=== PATIENT | male | born 1970 | race Caucasian/White ===

== ENCOUNTER 2016-05-25 08:00 | Emergency (ER) | payer BC ==
[2016-05-25 08:11] VITALS: BP 140/97
--- NOTE | 2016-05-25 08:34 | UC ---
Respiratory Complaint HPI - HPI Summary HPI Summary: 6 weeks of continued cough, albuteral and tessalon with out much relief cough in fact seems to be getting worse. no fevers or chills. some bronchial pain with cough - History of Current Complaint Chief Complaint: UCRespiratory Stated Complaint: COUGH Time Seen by Provider: 05/25/16 08:29 Hx Obtained From: Patient Onset/Duration: Gradual Onset, Lasting Weeks - 6, Still Present Timing: Constant Severity Initially: Mild Severity Currently: Mild Pain Intensity: 2 Pain Scale Used: 0-10 Numeric Character: Cough: Nonproductive Aggravating Factors: Nothing Alleviating Factors: Bronchodilator - slight Associated Signs And Symptoms: Positive: Pleuritic Chest Pain, URI - Allergies/Home Medications Allergies/Adverse Reactions: Allergies Allergy/AdvReac Type Severity Reaction Status Date / Time No Known Allergies Allergy Verified 09/29/15 18:10 Home Medications: Home Medications Ibuprofen TAB* [Advil TAB*] 1 tab PO 05/25/16 [History] Mucinex Cold-Max 05/25/16 [History] PMH/Surg Hx/FS Hx/Imm Hx Previously Healthy: No Cardiovascular History Of: Reports: Hypertension - EPISODIC - Surgical History Surgical History: None - Family History Known Family History: Positive: None Family History: no cardio vascular issues in family lineage - Social History Occupation: Employed Full-time Lives: With Family Alcohol Use: Weekly Alcohol Amount: 3-4 days Substance Use Type: None Smoking Status (MU): Former Smoker Have You Smoked in the Last Year: No Review of Systems Constitutional: Negative Skin: Negative Eyes: Negative ENT: Negative Respiratory: Cough Cardiovascular: Negative Gastrointestinal: Negative Genitourinary: Negative Motor: Negative Neurovascular: Negative Musculoskeletal: Negative Neurological: Negative Psychological: Negative All Other Systems Reviewed And Are Negative: Yes Physical Exam Triage Information Reviewed: Yes Appearance: Well-Appearing, No Pain Distress, Well-Nourished Vital Signs: Initial Vital Signs Temp 97.6 F 05/25/16 08:06 Pulse 83 05/25/16 08:06 Resp 18 05/25/16 08:06 BP 140/97 05/25/16 08:06 Pulse Ox 97 05/25/16 08:06 Vital Signs Reviewed: Yes Eye Exam: Normal Eyes: Positive: Conjunctiva Clear ENT Exam: Normal ENT: Positive: Normal ENT inspection, Hearing grossly normal, Pharynx normal, TMs normal. Negative: Nasal congestion, Nasal drainage, Tonsillar swelling, Tonsillar exudate, Trismus, Muffled/hoarse voice Dental Exam: Normal Neck exam: Normal Neck: Positive: Supple, Nontender, No Lymphadenopathy Respiratory Exam: Normal Respiratory: Positive: Chest non-tender, Lungs clear, Normal breath sounds, No respiratory distress Cardiovascular Exam: Normal Cardiovascular: Positive: RRR, No Murmur, Pulses Normal, Brisk Capillary Refill Musculoskeletal Exam: Normal Musculoskeletal: Positive: Strength Intact, ROM Intact, No Edema Neurological Exam: Normal Neurological: Positive: Alert, Muscle Tone Normal Psychological Exam: Normal Skin Exam: Normal UC Diagnostic Evaluation - Laboratory O2 Sat by Pulse Oximetry: 97 Respiratory Course/Dx - Course Course Of Treatment: continue albuterol, humidified air, add zithromax, follow with pcp - Differential Dx/Diagnosis Differential Diagnosis/HQI/PQRI: Asthma, Bronchitis, Sinusitis Provider Diagnoses: Bronchitis with bronchospastic cough Discharge - Discharge Plan Condition: Stable Disposition: HOME Prescriptions: Albuterol HFA INHALER* [Ventolin HFA Inhaler*] 2 puff INH Q4H PRN #1 mdi PRN Reason: cough Azithromycin TAB* [Zithromax TAB (Z-FRANNIE)*] 250 mg PO .Z-FRANNIE INSTRUCTIONS #6 tab Patient Education Materials: How to Use a Metered-Dose Inhaler (ED), Upper Respiratory Infection (ED), Acute Cough (ED) Referrals: Charlie Worthy, [employer] [Primary Care Provider] - If Needed
== END 2016-05-25 08:45 | disposition home or self-care (01) ==
LOC: UCEAST 08:00
DX: J20.9 Acute bronchitis, unspecified (principal); Z87.891 Personal history of nicotine dependence
CPT/HCPCS: 99212; G0463

== ENCOUNTER 2016-07-09 13:46 | Emergency (ER) | payer BC ==
[2016-07-09 15:32] VITALS: BP 144/91
--- NOTE | 2016-07-09 16:26 | UC ---
FLU HPI - History of Current Complaint Chief Complaint: UCRespiratory Stated Complaint: FLU-LIKE SYMPTOMS Time Seen by Provider: 07/09/16 15:52 Hx Obtained From: Patient - awoke this am with sudden onset body aches, cough, fever and malaise. his and 2 sons tested pos for Flu in last 2-3 days Onset/Duration: Sudden Onset Associated Signs & Symptoms: Positive: Fever, Cough, Sore Throat Related Hx: Possible Flu/Infectious Exposure - Allergy/Home Medications Allergies/Adverse Reactions: Allergies Allergy/AdvReac Type Severity Reaction Status Date / Time No Known Allergies Allergy Verified 09/29/15 18:10 Home Medications: Home Medications Cholecalciferol [Vitamin D3] 1,000 unit PO 07/09/16 [History] PMH/Surg Hx/FS Hx/Imm Hx Previously Healthy: Yes Endocrine History Of: Denies: Diabetes Cardiovascular History Of: Reports: Hypertension - episodic Respiratory History Of: Denies: COPD - Surgical History Surgical History: None - Family History Known Family History: Positive: None Family History: no cardio vascular issues in family lineage - Social History Alcohol Use: Daily Alcohol Amount: 3-4 days Substance Use Type: None Smoking Status (MU): Former Smoker Have You Smoked in the Last Year: No Review of Systems Constitutional: Fever, Fatigue Skin: Negative Eyes: Negative ENT: Sore Throat Respiratory: Cough Cardiovascular: Negative Gastrointestinal: Negative Musculoskeletal: Negative Neurological: Negative Psychological: Negative All Other Systems Reviewed And Are Negative: Yes Physical Exam Triage Information Reviewed: Yes Appearance: Well-Appearing, No Pain Distress, Well-Nourished Vital Signs: Initial Vital Signs Temp 100.8 F 07/09/16 15:28 Pulse 100 07/09/16 15:28 Resp 18 07/09/16 15:28 BP 144/91 07/09/16 15:28 Pulse Ox 95 07/09/16 15:28 Vital Signs Reviewed: Yes Eyes: Positive: Conjunctiva Clear ENT: Positive: Pharynx normal, TMs normal Neck: Positive: No Lymphadenopathy Respiratory: Positive: Lungs clear - dry cough on exam Cardiovascular Exam: Normal Cardiovascular: Positive: RRR Neurological Exam: Normal Psychological Exam: Normal Skin Exam: Normal Skin: Negative: rashes Flu Course/Dx - Differential Dx/Diagnosis Differential Diagnosis/HQI/PQRI: Bronchitis, Influenza, Upper Respiratory Infection Provider Diagnoses: influenza Discharge - Discharge Plan Condition: Good Disposition: HOME Prescriptions: Oseltamivir CAP* [Tamiflu CAP*] 75 mg PO BID #10 cap Referrals: Charlie Worthy [employer] [Primary Care Provider] - 2 Days (if no better) Additional Instructions: Drink plenty of fluids Start Tamiflu tonight ibuprofen or tylenol as directed for fever and pain
== END 2016-07-09 16:41 | disposition home or self-care (01) ==
LOC: UCEAST 13:46
DX: J11.1 Influenza due to unidentified influenza virus with other respiratory manifestations (principal); Z87.891 Personal history of nicotine dependence
CPT/HCPCS: 87502; 99212; G0463

== ENCOUNTER 2016-12-12 15:17 | Emergency (ER) | payer BC ==
[2016-12-12 15:23] VITALS: BP 133/84
--- NOTE | 2016-12-12 16:20 | UC ---
Ear Complaint HPI - HPI Summary HPI Summary: ONE DAY RIGHT EAR PAIN WORSE AFTER USING QTIP THIS MORNING, CONCERN THAT HE MAY HAVE FORCED EAR WAX FURTHER INTO EAR. NO FEVER. NO CONGESTION. NO DISCHARGE. - History of Current Complaint Chief Complaint: UCEar Stated Complaint: EAR COMPLAINT Time Seen by Provider: 12/12/16 15:26 Hx Obtained From: Patient Onset/Duration: Gradual Onset, Lasting Hours, Still Present Severity Initially: Mild Severity Currently: None Associated Signs/Symptoms: Positive: Trauma to Ear - QTIP - Allergies/Home Medications Allergies/Adverse Reactions: Allergies Allergy/AdvReac Type Severity Reaction Status Date / Time No Known Allergies Allergy Verified 12/12/16 15:23 PMH/Surg Hx/FS Hx/Imm Hx Previously Healthy: Yes - Surgical History Surgical History: None - Family History Known Family History: Positive: None Negative: Respiratory Disease Family History: no cardio vascular issues in family lineage - Social History Occupation: Employed Full-time Lives: With Family Alcohol Use: Daily Alcohol Amount: 3-4 days Substance Use Type: None Smoking Status (MU): Former Smoker Have You Smoked in the Last Year: No Review of Systems Constitutional: Negative Skin: Negative Eyes: Negative ENT: Ear Ache Respiratory: Negative Cardiovascular: Negative Gastrointestinal: Negative Genitourinary: Negative Motor: Negative Neurovascular: Negative Musculoskeletal: Negative Neurological: Negative Psychological: Negative All Other Systems Reviewed And Are Negative: Yes Physical Exam Triage Information Reviewed: Yes Appearance: Well-Appearing, No Pain Distress, Well-Nourished Vital Signs: Initial Vital Signs Temp 97.5 F 12/12/16 15:19 Pulse 65 12/12/16 15:19 Resp 16 12/12/16 15:19 BP 133/84 12/12/16 15:19 Pulse Ox 100 12/12/16 15:19 Vital Signs Reviewed: Yes Eye Exam: Normal ENT: Positive: Hearing grossly normal, Pharyngeal erythema, TMs normal - S/P RIGHT CERUMEN REMOVAL, Other: - RIGHT CERUMEN IMPACTION Dental Exam: Normal Neck exam: Normal Neck: Positive: Supple, Nontender, No Lymphadenopathy Respiratory Exam: Normal Respiratory: Positive: Chest non-tender, Lungs clear, Normal breath sounds, No respiratory distress Cardiovascular Exam: Normal Cardiovascular: Positive: RRR, No Murmur, Pulses Normal Abdominal Exam: Normal Musculoskeletal Exam: Normal Musculoskeletal: Positive: Strength Intact Neurological Exam: Normal Psychological Exam: Normal Skin Exam: Normal Ear Complaint Course/Dx - Differential Dx/Diagnosis Differential Diagnosis/HQI/PQRI: Cerumen Impaction, Otitis Externa, Perforated TM, URI Provider Diagnoses: RIGHT CERUMEN IMPACTION WITH REMOVAL Discharge - Discharge Plan Condition: Stable Disposition: HOME Patient Education Materials: Cerumen Impaction (ED) Referrals: Charlie Worthy, [employer] [Primary Care Provider] -
== END 2016-12-12 16:16 | disposition home or self-care (01) ==
LOC: UCEAST 15:17
DX: H61.21 Impacted cerumen, right ear (principal); Z87.891 Personal history of nicotine dependence
CPT/HCPCS: 99213; G0463

== ENCOUNTER 2018-09-02 14:50 | Emergency (ER) | payer BC ==
[2018-09-02 15:10] VITALS: BP 148/95
--- NOTE | 2018-09-02 15:34 | UC ---
Lower Extremity/Ankle HPI - HPI Summary HPI Summary: DEVELOPED RIGHT GREAT TOE PAIN THIS MORNING AT 10 AM. NO PREVIOUS SIMILAR SYMPTOMS IN THE PAST. DENIES ANY TRAUMA TO THE AREA BUT NOTES HE HAS A SMALL BLISTER ON THE MTP FROM WHERE IT RUBS ON HIS SHOE. THE FIRST MTP JOINT IS WARM , RED AND PAINFUL. DRINKS 4-5 GLASSES OF WINE OR BEER DAILY AND EATS A LOT OF RED MEAT. - History of Current Complaint Chief Complaint: UCLowerExtremity Stated Complaint: TOE INJURY Time Seen by Provider: 09/02/18 15:07 Hx Obtained From: Patient Onset/Duration: Sudden Onset, Lasting Hours, Still Present Severity Initially: Moderate Severity Currently: Moderate Pain Intensity: 5 Pain Scale Used: 0-10 Numeric Aggravating Factor(s): Ambulation Alleviating Factor(s): Nothing Able to Bear Weight: Yes - WITH PAIN - Allergies/Home Medications Allergies/Adverse Reactions: Allergies Allergy/AdvReac Type Severity Reaction Status Date / Time No Known Allergies Allergy Verified 09/02/18 15:10 Home Medications: Home Medications Flaxseed 349 gm PO DAILY 09/02/18 [History Confirmed 09/02/18] Milk Thistle 150 mg PO DAILY 09/02/18 [History Confirmed 09/02/18] PMH/Surg Hx/FS Hx/Imm Hx Cardiovascular History: Hypertension - Surgical History Surgical History: None - Family History Known Family History: Positive: None Negative: Respiratory Disease Family History: no cardio vascular issues in family lineage - Social History Alcohol Use: Daily Alcohol Amount: every 2 days Substance Use Type: None Smoking Status (MU): Former Smoker Have You Smoked in the Last Year: No When Did the Patient Quit Smoking/Using Tobacco: 2003 Review of Systems All Other Systems Reviewed And Are Negative: Yes Constitutional: Positive: Negative Skin: Positive: Other - ERYTHEMA Respiratory: Positive: Negative Cardiovascular: Positive: Negative Gastrointestinal: Positive: Negative Musculoskeletal: Positive: Arthralgia, Decreased ROM Physical Exam Triage Information Reviewed: Yes Appearance: Well-Appearing, No Pain Distress, Well-Nourished Vital Signs: Initial Vital Signs Temp 99.1 F 09/02/18 15:05 Pulse 78 09/02/18 15:05 Resp 16 09/02/18 15:05 BP 148/95 09/02/18 15:05 Pulse Ox 99 09/02/18 15:05 Vital Signs Reviewed: Yes Eyes: Positive: Conjunctiva Clear ENT: Positive: Hearing grossly normal Neck: Positive: Supple Respiratory: Positive: No respiratory distress, No accessory muscle use Cardiovascular: Positive: Pulses Normal Abdomen Description: Positive: Soft Musculoskeletal: Positive: No Edema, ROM Limited @ - right great toe, Other: - TTP RIGHT 1ST MTP Neurological: Positive: Alert Psychological: Positive: Age Appropriate Behavior Skin: Positive: Other - ERYTHEMA RIGHT 1ST MTP Diagnostics - Radiology RIGHT GREAT TOE XRAY Radiology Interpretation Completed By: Radiologist Summary of Radiographic Findings: Degenerative changes of the first metatarsal phalangeal joint. No fracture is noted. Lower Extremity Course/Dx - Course Course Of Treatment: XRAY UNREMARKABLE. CELLULITIS VS GOUT. WILL COVER FOR BOTH WITH KEFLEX AND INDOMETHACIN. ADVISED PT FOLLOW-UP WITH HIS PCP FOR LABS IN ABOUT 2 WEEKS AFTER HIS SX HAVE RESOLVED. - Differential Dx/Diagnosis Provider Diagnosis: Cellulitis of great toe, right Discharge - Sign-Out/Discharge Documenting (check all that apply): Patient Departure All imaging exams completed and their final reports reviewed: Yes - Discharge Plan Condition: Stable Disposition: HOME Prescriptions: Cephalexin CAP* [Keflex 500 CAP*] 500 mg PO BID #14 cap Indomethacin 50 mg PO TID #15 capsule Patient Education Materials: Cellulitis (ED), Gout (ED) Referrals: Charlie Worthy NP [Primary Care Provider] - 2 Weeks Additional Instructions: YOUR X-RAY TODAY SHOWS SOME DEGENERATIVE CHANGE IN YOUR RIGHT FIRST TOE JOINT BUT NO FRACTURE OR DISLOCATION. YOU LIKELY ARE SUFFERING FROM EITHER GOUT OR A SKIN INFECTION STEMMING FROM THE SMALL BLISTER ON YOUR TOE. BE SURE TO WEAR SHOES THAT ARE NOT TOO TIGHT AND SOCKS TO REDUCE CHAFING ON THE AREA. WILL COVER FOR BOTH SKIN INFECTION AND GOUT WITH ANTIBIOTIC AND ANTI-INFLAMMATORY. FOLLOW-UP WITH YOUR PCP IN 2 WEEKS AFTER YOUR SYMPTOMS HAVE IMPROVED FOR REEVALUATION AND LABS TO EITHER CONFIRM OR DENY ELEVATED LEVELS OF URIC ACID. TRY TO REDUCE YOUR ALCOHOL AND RED MEAT INTAKE. - Billing Disposition and Condition Condition: STABLE Disposition: Home
== END 2018-09-02 16:24 | disposition home or self-care (01) ==
LOC: UCEAST 14:50
DX: L03.031 Cellulitis of right toe (principal); M19.071 Primary osteoarthritis, right ankle and foot; I10 Essential (primary) hypertension; Z87.891 Personal history of nicotine dependence
CPT/HCPCS: 99212; G0463

== ENCOUNTER 2019-10-28 15:28 | Observation (INO) ==
[2019-10-28 16:14] LABS: ABS Eosinophils 0.1 10^3/ul (0-0.6); ABS Lymphocytes 1.4 10^3/ul (1.0-4.8); ABS Monocytes 0.6 10^3/ul (0-0.8); Hematocrit 44 % (42-52); Hemoglobin 15.2 g/dL (14.0-18.0); Lymphocyte % 27.4 %; Mean Corpuscular HGB Conc 35 g/dL (31-36); Mean Corpuscular Hemoglobin 33 pg (27-31); Mean Corpuscular Volume 93 fL (80-94); Mean Platelet Volume 8.8 fL (7.4-10.4); Nucleated Red Blood Cells % 0.1; Platelet Count 170 10^3/uL (150-450); Red Blood Count 4.66 10^6 /uL (4.18-5.48); Red Cell Distribution Width 13 % (10-15); White Blood Count 5.2 10^3/uL (3.5-10.8)
[2019-10-28 16:48] LABS: Troponin I 0.04 ng/mL (<0.03)
[2019-10-28 17:10] LABS: ALT 22 U/L (7-52); AST 23 U/L (13-39); Albumin 4.8 g/dL (3.2-5.2); Albumin/Globulin Ratio 1.7 (1-3); Alkaline Phosphatase 57 U/L (34-104); Anion Gap 7 mmol/L (2-11); Blood Urea Nitrogen 17 mg/dL (6-24); CO2 Carbon Dioxide 27 mmol/L (22-32); Calcium 10.4 mg/dL (8.6-10.3); Chloride 102 mmol/L (101-111); Globulin 2.8 g/dL (2-4); Glucose 104 mg/dL (70-100); Potassium 4.2 mmol/L (3.5-5.0); Sodium 136 mmol/L (135-145); Total Protein 7.6 g/dL (6.4-8.9)
[2019-10-28 18:36] LABS: TSH (Thyroid Stimulating Horm) 2.43 mcIU/mL (0.34-5.60); Vitamin D Total 25(OH) 43.9 ng/mL (20-50)
[2019-10-28 19:16] LABS: Troponin I 0.03 ng/mL (<0.03)
[2019-10-28] MEDS: Heparin 5000 UNITS/ML VIAL(*) 1 ml vial SUBCUT SCH (22:07)
[2019-10-28 22:21] LABS: Troponin I 0.04 ng/mL (<0.03)
[2019-10-29 01:55] LABS: Troponin I 0.04 ng/mL (<0.03)
[2019-10-29] MEDS: Heparin 5000 UNITS/ML VIAL(*) 1 ml vial SUBCUT SCH ×2 (05:17→14:32)
[2019-10-29 07:39] LABS: ABS Basophils 0.1 10^3/ul (0-0.2); ABS Eosinophils 0.2 10^3/ul (0-0.6); ABS Lymphocytes 1.4 10^3/ul (1.0-4.8); ABS Monocytes 0.5 10^3/ul (0-0.8); Eosinophil % 4.1 %; Hematocrit 45 % (42-52); Lymphocyte % 27.5 %; Mean Corpuscular HGB Conc 36 g/dL (31-36); Mean Corpuscular Hemoglobin 33 pg (27-31); Mean Corpuscular Volume 94 fL (80-94); Mean Platelet Volume 8.4 fL (7.4-10.4); Nucleated Red Blood Cells % 0.1; Platelet Count 173 10^3/uL (150-450); Red Blood Count 4.79 10^6 /uL (4.18-5.48); Red Cell Distribution Width 13 % (10-15); White Blood Count 5.1 10^3/uL (3.5-10.8)
[2019-10-29 07:57] LABS: Calcium 10.2 mg/dL (8.6-10.3); EGFR African American 102.4 (>60); EGFR Non-African American 84.6 (>60); Potassium 4.3 mmol/L (3.5-5.0)
[2019-10-29] MEDS ORDERED: Aspirin EC 81 mg TAB.EC (enteric coated) PO SCH (09:00)
[2019-10-29 12:46] VITALS: BP 130/94
== END 2019-10-29 15:36 | disposition home or self-care (01) ==
LOC: MEDTELE 15:28 → ED 15:28 → MEDTELE 19:22
PROVIDERS: ADMIT Internal Medicine; ATTEND Internal Medicine